=== PATIENT | female | born 1965 | race Caucasian/White ===

== ENCOUNTER 2019-11-29 13:31 | Observation (INO) | payer BC, SELFPAY ==
[2019-11-29] VITALS (32 sets, daily range): BP systolic 117–175; BP diastolic 60–96; PULSE 75–119; RESP 10–36; TEMP 36.1–36.8; O2SAT 93–100; BMI 27.8
--- NOTE | ~2019-11-29 | XR_ITS ---
EXAMINATION: XR chest 2V DATE: 11/29/2019 14:02 INDICATION: Chest pain. TECHNIQUE: Frontal and lateral views of the chest were obtained. COMPARISON: Chest single view 07/11/2012 FINDINGS: The chest demonstrates clear lungs without pneumonia, pleural effusion, or pneumothorax. Th e heart size is normal. There is mild anterior wedging 2 midthoracic vertebral bodies, likely chronic . IMPRESSION: 1. No acute cardiopulmonary disease. Reviewed, dictated and finalized at location E.
--- NOTE | ~2019-11-29 | CT_ITS ---
EXAMINATION: CTA chest PE protocol DATE: 11/29/2019 16:48 INDICATION: Chest pain and shortness of breath TECHNIQUE: Computed tomography angiography (CTA) of the chest was performed with 100 mL Omnipaque-350 intravenous contrast timed to evaluate the pulmonary arteries. Coronal maximum intensity projection 3D-reconstructions were created by the technologist. The dose-length product (DLP) was 321.42 mGy-cm. Automated exposure control and iterative reconstruction technique were employed. COMPARISON: 06/08/2006 FINDINGS: The pulmonary arteries are well-opacified. No pulmonary embolism is identified. The lungs a re free of acute opacities. There is no pleural effusion or pneumothorax. No pathologically enlarged thoracic lymph nodes are identified. The heart size is normal. There are surgical changes in the stom ach. The gallbladder is surgically absent. There is mild thoracic spondylosis. IMPRESSION: 1. No pulmonary embolism or acute cardiopulmonary abnormality. Reviewed, dictated and finalized at location A.
--- NOTE | 2019-11-29 13:33 | ECG_ITS ---
Measurements Intervals [place] Rate: 107 P: 78 [place]: 136 QRS: 69 QRSD: 93 T: 20 QT: 324 QTc: 434 Interpretive Statements SINUS TACHYCARDIA POSSIBLE LEFT ATRIAL ENLARGEMENT BORDERLINE ST ABNORMALITY- ANTEROLAT/INF LEADS BASELINE ARTIFACT- II, III, AVR, AVL, AVF, V2, V4 ABNORMAL ECG Electronically Signed On 11-29-2019 14:33:17 CDT by Young Ceja D.O.
--- NOTE | 2019-11-29 13:47 | ED.CHESTPAIN ---
HPI - Chest Pain General Chief Complaint: Chest Pain Stated Complaint: chest pain Time Seen by Provider: 11/29/19 13:43 Source: RN notes reviewed History of Present Illness HPI narrative: Patient presents emergency department from home for chest pain. Patient states that she has been having intermittent chest pain for the past 5 days. The pain is located over the left chest and is described as a pressure. Patient states the pain will last from 30 seconds to a minute at a time and initially occurred only several times during the day and is progressively worsened to occurring approximately every 15 to 20 minutes. Pain radiates into the left jaw and is associated with mild shortness of breath. Patient denies any previous cardiac history denies any fevers or chills abdominal pain nausea vomiting or any other symptoms at this time Related Data Home Medications Medication Instructions Recorded Confirmed bupropion HCl [Wellbutrin XL] 150 mg PO QAM 11/29/19 furosemide [Lasix] 20 mg PO DAILY 11/29/19 levothyroxine 13 mcg PO DAILY 11/29/19 Allergies Allergy/AdvReac Type Severity Reaction Status Date / Time prochlorperazine Allergy Unknown MAKES PT'S Verified 11/29/19 13:40 MUSCLES OMAR Review of Systems Review of Systems: Narrative: Gen.: Denies fevers or chills ENT: Denies congestion Respiratory: Reports shortness of breath CV: Reports chest pain GI: Denies abdominal pain nausea, emesis or diarrhea Musculoskeletal: Denies back pain or muscle pain Neuro: Denies numbness, tingling, weakness or focal weakness Skin: Denies rash Except as documented, all other systems reviewed and negative [facility] Past Medical History Medical History (Updated 11/29/19 @ 18:45 by Cj Worrell DO) Patient denies significant medical history Social History Social History (Updated 11/29/19 @ 13:48 by Cj Worrell DO) Smoking status: Never smoker Gender identity (if verbalized by the patient): Female Exam Narrative: Exam Narrative: APPEARANCE: No acute distress, nontoxic, resting in bed EYES: EOMI HEENT: Normocephalic, atraumatic, OMM RESPIRATORY: No respiratory distress Clear to auscultation bilaterally with no rhonchi wheezing or rales. CARDIOVASCULAR: Tachycardic and regular without murmurs rubs or gallops. ABDOMINAL: Soft, nontender, nondistended, no rebound or guarding MUSCULOSKELETAl: Moves all extremities. No clubbing, cyanosis or edema. NEURO: Awake and alert. Following commands, speech normal, no focal deficits SKIN:: Warm, dry. No rashes lesions or abrasions PSYCHIATRIC: Normal affect/mood, Course Course Emergency Course: Patient notes minimal change in pain with GI cocktail morphine given with improvement Following Zofran the patient had hives and redness noted to right wrist Solu-Medrol Benadryl was given the patient noted irritation of the right hand radial pulse was 2+ capillary refill is less than 3 seconds in all 5 digits the IV was removed and patient noted improvement in symptoms Discussed with Dr. mcgraw presentation work-up. Agrees with admission at this time Discussed with GRISELDA Middleton for Dr Bojorquez presentation work-up agrees with admission at this time Discussed with patient and family results of workup and diagnosis. Discussed need for admission. Patient and family understand and agree to current treatment plan Vital Signs Vital signs: Vital Signs Temperature 98.3 F 11/29/19 13:36 Pulse Rate 116 H 11/29/19 13:36 Respiratory Rate 16 11/29/19 13:36 Blood Pressure 175/96 H 11/29/19 13:36 Pulse Oximetry 99 11/29/19 13:36 Temperature 98.3 F 11/29/19 13:36 Pulse Rate 80 11/29/19 17:45 Respiratory Rate 10 L 11/29/19 17:45 Blood Pressure 145/81 H 11/29/19 16:51 Pulse Oximetry 100 11/29/19 17:45 MDM - Chest Pain Lab Data Result diagrams: 11/29/19 13:43 11/29/19 13:44 Labs: Lab Results 11/29/19 11/29/19 11/29/19 Range/Uni
[2019-11-29 13:55] LABS: Basophils Percent Auto 0.3 % (0.2-1.2); Eosinophils Absolute Auto 0.1 K/mm3 (0-0.3); Eosinophils Percent Auto 0.6 % (0-4.4); Hematocrit 42.7 % (37.0-47.0); Hemoglobin 13.7 g/dL (12.0-15.0); Immature Granulocyte Absolute 0.04 K/mm3 (0.00-0.031); Immature Granulocyte Percent A 0.4 % (0-0.5); Lymphocytes Absolute Auto 2.46 K/mm3 (0.9-3.2); Lymphocytes Percent Auto 26.1 % (18.3-44.2); Mean Corpuscular HGB Conc 32.1 g/dl (32-36); Mean Corpuscular Hemoglobin 28.8 pg (26-34); Mean Corpuscular Volume 89.7 fl (80-100); Mean Platelet Volume 10.9 fl (7.4-10.4); Monocytes Absolute Auto 0.6 K/mm3 (0.1-0.6); Monocytes Percent Auto 6.8 % (2.6-8.5); Neutrophils Absolute Auto 6.2 K/mm3 (1.3-6.7); Neutrophils Percent Auto 65.8 % (45.5-73.1); Platelet Count Result 327 k/mm3 (150-375); Red Blood Count 4.76 M/mm3 (4.2-5.4); White Blood Count 9.4 K/mm3 (4.5-10.0)
[2019-11-29 14:04] LABS: INR 0.9; Prothrombin Time 11.9 Seconds (11.1-14.7)
[2019-11-29 14:05] LABS: Partial Thromboplastin Time 22.9 SECONDS (22.3-36.8)
[2019-11-29 14:11] LABS: Blood Urea Nitrogen 20 mg/dL (7-17); Carbon Dioxide 27 mmol/L (22-30); Chloride 103 mmol/L (98-107); Estimated CRCL calculation 78 ml/min; Estimated Glomerular Filt Rate > 60; Glucose 81 mg/dL (65-105); Potassium 4.7 mmol/L (3.4-5.0); Sodium 139 mmol/L (137-145)
[2019-11-29] MEDS: ASPIRIN 81 MG CHEWABLE TABLET 324 MG PO (14:33)
--- NOTE | 2019-11-29 15:45 | ECG_ITS ---
Measurements Intervals [place] Rate: 89 P: 67 [place]: 150 QRS: 53 QRSD: 96 T: 60 QT: 373 QTc: 454 Interpretive Statements SINUS RHYTHM POSSIBLE LEFT ATRIAL ENLARGEMENT BORDERLINE ECG Electronically Signed On 11-30-2019 7:16:19 CDT by Young Ceja D.O.
[2019-11-29] MEDS: ONDANSETRON INJ 4 MG/2 ML VIAL IV PUSH (16:30)
--- NOTE | 2019-11-29 16:40 | PC.NURSE ---
Attempted to draw 3-hour troponin but patient in CT scan
[2019-11-29] MEDS: methylPREDNISolone SOD SUCC 125 MG VIAL IV PUSH (16:54)
[2019-11-29] MEDS: MORPHINE SULFATE 4 MG/ML INJ IV PUSH (16:54)
--- NOTE | 2019-11-29 17:09 | PC.NURSE ---
Attempted to obtain 3-hour troponin but was unsuccessful. Called phlebotomy at this time to draw.
[2019-11-29 17:59] LABS: Troponin I < 0.012 ng/mL (0.000-0.034)
[2019-11-29 20:09] LABS: Troponin I < 0.012 ng/mL (0.000-0.034)
--- NOTE | 2019-11-29 21:14 | ADMGEN ---
This patient, Emi Huang, was admitted to IMU Room 202-01 on 11/29/19 at 2053. Patient/family oriented to hospital policies and general routines including ID bracelet, bed and alarms, visiting hours, pain management, procedures, bathroom and other care routines, personal items, smoking policy, room service/diet, and visiting hours. Valuables list has been completed. VSS at time of admission. Will continue to monitor pt closely. Information on how to activate the Rapid Response Team has been discussed. Patient/Family are encouraged to report perceived risks to care and to ask questions if they do not understand what they are told or what they should do.
[2019-11-30] VITALS (8 sets, daily range): BP systolic 100–102; BP diastolic 53–62; PULSE 63–91; RESP 16–18; TEMP 36.1; O2SAT 98–100
--- NOTE | 2019-11-30 00:37 | PM.IMHP ---
H&P: HPI History of Present Illness Chief complaint: chest pain Narrative: This is a pleasant 54 year old female with known hypothyroidism, anxiety, and depression who presented to the hospital with a complaint of intermittent left sided chest pain for the past 5 days. She describes her chest pain as pressure like and radiating towards her left jaw. She describes having multiple episodes of chest pain each hour that lasts only a few moments each time. Associated symptoms include shortness of breath, diaphoresis and anxiety. She denies that her chest pain is pleuritic, positional or exertional in nature. She has no previous history of heart disease. She had a stress test many years ago and believes she once had a cardiac angiogram about 10 years ago. The patient's troponin has been negative. On my encounter with the patient brady she currently is asymptomatic other than feeling very anxious. 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 She denies any recent fevers, cough or other symptoms. Review of Systems Review of Systems: All systems reviewed & are unremarkable except as noted in HPI and below PMFSH Past Medical History Medical History (Updated 11/30/19 @ 22:27 by Eugenio Larsen MD) Anxiety Depression Hypothyroidism Patient denies significant medical history Family History Family History Mother Hypertension Pulmonary embolism Father Hypertension Grandparent Hypertension Acute myocardial infarction Chronic obstructive pulmonary disease Pulmonary embolism Sibling Rectal cancer Chronic obstructive pulmonary disease Congestive heart failure Sibling Breast cancer Social History Social History Smoking status: Never smoker Second hand tobacco smoke exposure: No Alcohol intake: never Substance use: never Substance use type: does not use Gender identity (if verbalized by the patient): Female Spiritual care concerns: No Meds Home Medications and Allergies Home Medications Medication Instructions Recorded Confirmed Type bupropion HCl [Wellbutrin XL] 300 mg PO QAM 11/29/19 11/29/19 History diphenhydramine-acetaminophen 2 tablet PO HS PRN 11/29/19 11/29/19 History [Tylenol PM Extra Strength] furosemide [Lasix] 20 mg PO DAILY 11/29/19 11/29/19 History levothyroxine 137 mcg PO DAILY 11/29/19 11/29/19 History lorazepam 0.5 mg PO BID PRN 11/29/19 11/29/19 History ondansetron 4 mg PO Q6H PRN 11/29/19 11/29/19 History Allergies Allergy/AdvReac Type Severity Reaction Status Date / Time prochlorperazine Allergy Unknown MAKES PT'S Verified 11/29/19 21:52 MUSCLES JERK Vital Signs Vital Signs - 24 hr 11/29/19 13:36 11/29/19 13:38 11/29/19 13:39 Temperature 36.8 C Pulse Rate 116 H 115 H 109 H Respiratory Rate 16 15 28 H Blood Pressure 175/96 H 175/96 H Pulse Oximetry 99 98 99 11/29/19 13:40 11/29/19 13:46 11/29/19 14:06 Temperature Pulse Rate 119 H 109 H 93 Respiratory Rate 26 H 21 H Blood Pressure Pulse Oximetry 100 100 11/29/19 14:15 11/29/19 14:41 11/29/19 14:45 Temperature Pulse Rate 90 82 82 Respiratory Rate 28 H 20 19 Blood Pressure Pulse Oximetry 100 100 100 11/29/19 15:00 11/29/19 15:18 11/29/19 15:30 Temperature Pulse Rate 87 76 80 Respiratory Rate 31 H 12 Blood Pressure Pulse Oximetry 100 93 96 11/29/19 15:47 11/29/19 16:06 11/29/19 16:15 Temperature Pulse Rate 93 88 84 Respiratory Rate 33 H 21 H 20 Blood Pressure Pulse Oximetry 94 99 98 11/29/19 16:30 11/29/19 16:50 11/29/19 16:51 Temperature Pulse Rate 80 98 97 Respiratory Rate 18 23 H 21 H Blood Pressure 145/81 H Pulse Oximetry 98 100 100 11/29/19 17:00 11/29/19 17:21 11/29/19 17:34 Temperature Pulse Rate 106 H 80 83 Respiratory Rate 36 H 28 H 17 Blood Pressure Pulse Oximetry
[2019-11-30] MEDS: ACETAMINOPHEN 500 MG TABLET 1000 MG PO (01:09)
[2019-11-30] MEDS: LORAZEPAM 0.5 MG TABLET PO (01:10)
--- NOTE | 2019-11-30 01:28 | ECG_ITS ---
Measurements Intervals [place] Rate: 79 P: 69 [place]: 158 QRS: 66 QRSD: 93 T: 63 QT: 391 QTc: 448 Interpretive Statements SINUS RHYTHM BASELINE ARTIFACT- AVF, V1, V4-V5 NORMAL ECG Electronically Signed On 11-30-2019 7:19:43 CDT by Young Ceja D.O.
[2019-11-30 04:38] LABS: Basophils Percent Auto 0.1 % (0.2-1.2); Hematocrit 37.9 % (37.0-47.0); Hemoglobin 12.1 g/dL (12.0-15.0); Immature Granulocyte Absolute 0.02 K/mm3 (0.00-0.031); Immature Granulocyte Percent A 0.2 % (0-0.5); Lymphocytes Absolute Auto 0.74 K/mm3 (0.9-3.2); Lymphocytes Percent Auto 8.6 % (18.3-44.2); Mean Corpuscular HGB Conc 31.9 g/dl (32-36); Mean Corpuscular Hemoglobin 28.6 pg (26-34); Mean Corpuscular Volume 89.6 fl (80-100); Mean Platelet Volume 10.5 fl (7.4-10.4); Monocytes Absolute Auto 0.2 K/mm3 (0.1-0.6); Monocytes Percent Auto 1.7 % (2.6-8.5); Neutrophils Absolute Auto 7.7 K/mm3 (1.3-6.7); Neutrophils Percent Auto 89.4 % (45.5-73.1); Platelet Count Result 277 k/mm3 (150-375); Red Blood Count 4.23 M/mm3 (4.2-5.4); Red Cell Distribution Width 12.6 % (11.5-14.5); White Blood Count 8.6 K/mm3 (4.5-10.0)
[2019-11-30 04:50] LABS: Cholesterol 141 mg/dL (0-200); HDL Direct 66 mg/dL; Triglycerides 52 mg/dL (<150)
[2019-11-30 04:54] LABS: Alanine Aminotransferase 11 U/L (4-35); Albumin Level 4.1 g/dL (3.5-5.1); Alkaline Phosphatase 85 U/L (38-126); Aspartate Amino Transferase 20 U/L (14-36); Bilirubin,Total 0.3 mg/dL (0.2-1.3); Blood Urea Nitrogen 22 mg/dL (7-17); Calcium 9.1 mg/dL (8.4-10.2); Carbon Dioxide 23 mmol/L (22-30); Chloride 107 mmol/L (98-107); Estimated CRCL calculation 88 ml/min; Estimated Glomerular Filt Rate > 60; Glucose 144 mg/dL (65-105); Potassium 4.2 mmol/L (3.4-5.0); Sodium 136 mmol/L (137-145)
[2019-11-30 05:00] LABS: LDL Cholesterol Direct 60 mg/dL
[2019-11-30] MEDS: LEVOTHYROXINE SODIUM 25 MCG TABLET PO (05:54)
[2019-11-30] MEDS: LEVOTHYROXINE SODIUM 112 MCG TABLET PO (05:54)
--- NOTE | 2019-11-30 09:11 | PM.CNCAR ---
Assessment and Plan Assessment and plan (1) Chest pain: Code(s): R07.9 - Chest pain, unspecified Status: Acute Assessment and Plan: This is probably more anxiety/stress related chest discomfort. Advise to decrease stress level, and may need anxiolytics adjusted. She is on Wellbutrin also. May d/c home from cardiology standpoint and f/u with me in next 1-2 weeks to order an outpatient stress test. We do not do them on weekends. (2) Anxiety: Code(s): F41.9 - Anxiety disorder, unspecified Status: Acute History of Present Illness History of Present Illness Consult date/time: 11/30/19 09:11 Reason for consult: Chest pain. This is a 54 year old woman with known hypothyroidism, anxiety, and depression who presented to the hospital with a complaint of intermittent left sided chest pain for the past 5 days. She describes her chest pain as pressure like and radiating towards her left jaw. She describes having multiple episodes of chest pain each hour that lasts only a few moments each time. Associated symptoms include shortness of breath, diaphoresis and anxiety. She denies that her chest pain is pleuritic, positional or exertional in nature. She has no previous history of heart disease. 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 She admits her anxiety does come on for which she takes Ativan BID. She is able to walk 1 mile without any problems. Her initial EKG shows Sinus rhythm with borderline ST abnormality, then it improved and finally resolved. Troponins x 3 sets are negative. She no longer have any more chest pains since 4 this morning. CTA of chest is without pulm embolism. Reason For Visit: chest pain Review of Systems Review of Systems: All systems reviewed & are unremarkable except as noted in HPI and below Constitutional: Constitutional: Reports as per HPI, Denies body ache(s) and Denies chills Cardiovascular: Cardiovascular: Reports as per HPI and Reports chest pain Respiratory: Respiratory: Reports as per HPI and Denies dyspnea on exertion Gastrointestinal: Gastrointestinal: Reports as per HPI and Denies abdominal pain Genitourinary: Genitourinary: Reports as per HPI and Denies nocturia Musculoskeletal: Musculoskeletal: Reports as per HPI Neurologic: Reports as per HPI and Denies Abnormal speech present [facility] Past Medical History Medical History Patient denies significant medical history Family History Family History Mother Hypertension Pulmonary embolism Father Hypertension Grandparent Hypertension Acute myocardial infarction Chronic obstructive pulmonary disease Pulmonary embolism Sibling Rectal cancer Chronic obstructive pulmonary disease Congestive heart failure Sibling Breast cancer Social History Social History Smoking status: Never smoker Second hand tobacco smoke exposure: No Alcohol intake: never Substance use: never Substance use type: does not use Gender identity (if verbalized by the patient): Female Spiritual care concerns: No Meds Home Medications and Allergies Home Medications Medication Instructions Recorded Confirmed Type bupropion HCl [Wellbutrin XL] 300 mg PO QAM 11/29/19 11/29/19 History diphenhydramine-acetaminophen 2 tablet PO HS PRN 11/29/19 11/29/19 History [Tylenol PM Extra Strength] furosemide [Lasix] 20 mg PO DAILY 11/29/19 11/29/19 History levothyroxine 137 mcg PO DAILY 11/29/19 11/29/19 History lorazepam 0.5 mg PO BID PRN 11/29/19 11/29/19 History ondansetron 4 mg PO Q6H PRN 11/29/19 11/29/19 History Allergies Allergy/AdvReac Type Severity Reaction Status Date / Time prochlorperazine Allergy Unknown MAKES PT'S Verified 11/29/19 21:52 MUSCLES JERK Vital Signs Vital Signs -
[2019-11-30] MEDS: FUROSEMIDE 20 MG TABLET PO (09:19)
[2019-11-30] MEDS: buPROPion HCL XL (24 HR) 150 MG TABCR 300 MG PO (09:19)
--- NOTE | 2019-11-30 11:07 | PM.DS ---
DS: Admitting Diagnosis Admitting Diagnosis Admitting Diagnosis: Chest pain, unspecified DS: Discharge Diagnosis Discharge Diagnosis (1) Anxiety: Code(s): F41.9 - Anxiety disorder, unspecified Status: Acute Assessment and Plan: History of anxiety -chest pain may be anxiety related. Pt to have outpatient stress test. (2) Chest pain: Code(s): R07.9 - Chest pain, unspecified Status: Acute Assessment and Plan: 54 year old female with known hypothyroidism, anxiety, and depression who presented to the hospital with a complaint of intermittent left sided chest pain for the past 5 days. EKG shows Sinus rhythm with borderline ST abnormality. Troponins x 3 sets are negative. CTA of chest is without pulmonary embolism. Pt can be discharged with a follow up with Dr Ceja. No mention of cough or SOB. Chest pain intermittent and left sided. DS: Summary Time Spent with Patient Time attestation: Total time spent providing and/or coordinating discharge services:40 minutes on day of discharge Exam Narrative: Exam Narrative: Vitals are stable DS: Data Data Completed and Pending Labs on day of discharge: Labs from last 24 hours 11/30/19 11/30/19 11/30/19 04:16 04:16 04:16 WBC 8.6 RBC 4.23 Hgb 12.1 Hct 37.9 MCV 89.6 MCH 28.6 MCHC 31.9 L RDW 12.6 Plt Count 277 MPV 10.5 H Immature Gran % (Auto) 0.2 Neut % (Auto) 89.4 H Lymph % (Auto) 8.6 L Blount % (Auto) 1.7 L Eos % (Auto) 0.0 Baso % (Auto) 0.1 L Lymph # (Auto) 0.74 L Blount # (Auto) 0.2 Eos # (Auto) 0.0 Baso # (Auto) 0.0 Abs Immat Gran (auto) 0.02 Absolute Neuts (auto) 7.7 H Absolute Nucleated RBC 0.0 Nucleated RBC % 0.0 PT INR APTT Sodium 136 L Potassium 4.2 Chloride 107 Carbon Dioxide 23 BUN 22 H Creatinine 0.70 Estim Creat Clear Calc 88 Estimated GFR > 60 Glucose 144 H Calcium 9.1 Total Bilirubin 0.3 AST 20 ALT 11 Alkaline Phosphatase 85 Troponin I Total Protein 7.0 Albumin 4.1 Triglycerides 52 Cholesterol 141 LDL Cholesterol Direct 60 HDL Direct 66 11/29/19 11/29/19 11/29/19 19:39 17:29 13:44 WBC RBC Hgb Hct MCV MCH MCHC RDW Plt Count MPV Immature Gran % (Auto) Neut % (Auto) Lymph % (Auto) Blount % (Auto) Eos % (Auto) Baso % (Auto) Lymph # (Auto) Blount # (Auto) Eos # (Auto) Baso # (Auto) Abs Immat Gran (auto) Absolute Neuts (auto) Absolute Nucleated RBC Nucleated RBC % PT INR APTT Sodium 139 Potassium 4.7 Chloride 103 Carbon Dioxide 27 BUN 20 H Creatinine 0.80 Estim Creat Clear Calc 78 Estimated GFR > 60 Glucose 81 Calcium 9.0 Total Bilirubin AST ALT Alkaline Phosphatase Troponin I < 0.012 < 0.012 D 0.020 Total Protein Albumin Triglycerides Cholesterol LDL Cholesterol Direct HDL Direct 11/29/19 11/29/19 13:43 13:43 WBC 9.4 RBC 4.76 Hgb 13.7 Hct 42.7 MCV 89.7 MCH 28.8 MCHC 32.1 RDW 13.0 Plt Count 327 MPV 10.9 H Immature Gran % (Auto) 0.4 Neut % (Auto) 65.8 Lymph % (Auto) 26.1 Blount % (Auto) 6.8 Eos % (Auto) 0.6 Baso % (Auto) 0.3 Lymph # (Auto) 2.46 Blount # (Auto) 0.6 Eos # (Auto) 0.1 Baso # (Auto) 0.0 Abs Immat Gran (auto) 0.04 H Absolute Neuts (auto) 6.2 Absolute Nucleated RBC 0.0 Nucleated RBC % 0.0 PT 11.9 INR 0.9 APTT 22.9 Sodium Potassium Chloride Carbon Dioxide BUN Creatinine Estim Creat Clear Calc Estimated GFR Glucose Calcium Total Bilirubin AST ALT Alkaline Phosphatase Troponin I Total Protein Albumin Triglycerides Cholesterol LDL Cholesterol Direct HDL Direct Discharge Plan Discharge Attending physician on discharge: Amalia Bojorquez
== END 2019-11-30 12:00 | disposition home or self-care (01) ==
LOC: ANHED 18:46 → ANHIMU 19:58
PROVIDERS: Family Medicine; Admitting Provider Family Medicine; Emergency Provider Emergency Medicine; PCP Emergency Medicine; Visit Provider Family Medicine
DX: R07.9 Chest pain, unspecified (principal); E03.9 Hypothyroidism, unspecified; F41.8 Other specified anxiety disorders
CPT/HCPCS: 36415; 71046; 71275; 80048; 80053; 80061; 84484; 85025; 85610; 85730; 93005; 96374; 96375; 99285; A9270; G0378; J1200; J2270; J2405; J2930; Q9967

== ENCOUNTER 2019-12-05 10:09 | Outpatient (CLI) | payer BC, SELFPAY ==
--- NOTE | ~2019-12-05 | MM_ITS ---
EXAMINATION: MM screening aleksandra BI w bhumika HISTORY: Screening mammogram, family history of breast cancer in her sister. History of reduction aleksandra moplasty TECHNIQUE: Craniocaudal and mediolateral oblique 3-D tomosynthesis images were obtained and synthetic 2-D images were generated. CAD analysis was submitted and interpreted. COMPARISON: 04/13/2017 BREAST PARENCHYMAL COMPOSITION: The breasts are almost entirely fatty. FINDINGS: Bilateral skin calcifications are noted. There is no evidence of suspicious mass, calcifica tion, or architectural distortion to suggest malignancy in either breast. There has been no suspiciou s interval change. IMPRESSION: 1. No mammographic evidence of malignancy. 2. Recommend routine screening mammography in one year. BI-RADS Category 1: Negative Reviewed, dictated and finalized at location A.
== END 2019-12-05 10:10 | disposition home or self-care (01) ==
LOC: ANHIMG 10:11
PROVIDERS: PCP Emergency Medicine; Visit Provider Emergency Medicine
DX: Z12.31 Encounter for screening mammogram for malignant neoplasm of breast (principal)
CPT/HCPCS: 77063; 77067

== ENCOUNTER 2020-11-02 17:09 | Outpatient (CLI) | payer BC, SELFPAY ==
--- NOTE | ~2020-11-02 | XR_ITS ---
EXAMINATION: XR abdomen obstructive series DATE: 11/02/2020 17:29 INDICATION: Mid abdominal/stomach pain. TECHNIQUE: Frontal supine and upright views of the abdomen were obtained. COMPARISON: None. FINDINGS: No dilated loops of gas-filled bowel to suggest obstruction. No free intraperitoneal gas. Cholecystec katiuska clips in the right abdomen. Suture line in the left upper quadrant located along the greater cur vature of the stomach on prior CT which could be related to prior sleeve gastrectomy. Visualized mid to lower lung zones are clear. Heart size is normal. Inferior tip of a right-sided central venous por t catheter is seen at the superior vena cava. Mild thoracic and lumbar spondylosis. IMPRESSION: 1. No free intraperitoneal gas or dilated gas-filled loops of bowel to suggest obstruction. Reviewed, dictated and finalized at location A.
== END 2020-11-02 17:10 | disposition home or self-care (01) ==
PROVIDERS: PCP Nurse Practitioner Adult Health; Visit Provider Nurse Practitioner Adult Health
DX: Z87.19 Personal history of other diseases of the digestive system (principal)
CPT/HCPCS: 74019

== ENCOUNTER → 2023-04-18 11:52 | Outpatient (CLI) | payer BC, SELFPAY ==
--- NOTE | ~2023-04-18 | XR_ITS ---
AP and oblique views of the right ribs Clinical History: Pain Findings: Right-sided Mediport in place. No rib fracture is seen. Osseous alignment is anatomic. Lung s are clear, without focal consolidation or pleural effusion. Cardiomediastinal contour is within nor mal limits. Soft tissues are unremarkable. Impression: No rib fracture is seen. Reviewed, dictated and finalized at location . Impression: No rib fracture is seen.
== END ==
PROVIDERS: PCP Family Medicine; Visit Provider Nurse Practitioner Family
DX: R07.81 Pleurodynia (principal)
CPT/HCPCS: 71100

== ENCOUNTER 2024-01-19 06:59 | Outpatient (CLI) | payer BC, SELFPAY ==
--- NOTE | ~2024-01-19 | XR_ITS ---
EXAMINATION: [id number] DATE: 01/19/2024 07:25 INDICATION: Left chest injury. TECHNIQUE: A frontal view of the chest and 2 views on 3 radiographs of the left ribs were obtained. COMPARISON: Chest 2 views 11/29/19 FINDINGS: There is no pneumonia, pleural effusion, or pneumothorax. The heart size is normal. There i s a right subclavian port with tip in superior vena cava. IMPRESSION: 1. No rib fracture. Reviewed, dictated and finalized at location E. IMPRESSION: 1. No rib fracture.
== END 2024-01-19 07:00 | disposition home or self-care (01) ==
PROVIDERS: PCP Family Medicine; Visit Provider Family Medicine
DX: R07.81 Pleurodynia (principal)
CPT/HCPCS: 71101

== ENCOUNTER 2024-04-24 09:10 | Outpatient (CLI) | payer BC, SELFPAY ==
--- NOTE | ~2024-04-24 | US_ITS ---
Right neck ULTRASOUND Ordering provider: Adriana Ventura NP History: . R22.1 - Localized swelling, mass and lump, neck . Comparison: None. FINDINGS/impression: Multiple subcutaneous and deep lymph nodes are noted. The largest measures 1.3 x 0.7 x 0.4 cm. Follow -up advised. Reviewed, dictated and finalized at location A.
== END 2024-04-24 09:11 | disposition home or self-care (01) ==
LOC: GOSHIMG 09:12
PROVIDERS: PCP Family Medicine; Visit Provider Nurse Practitioner Family
DX: R22.1 Localized swelling, mass and lump, neck (principal)
CPT/HCPCS: 76536

== ENCOUNTER 2024-07-05 13:48 | Outpatient (CLI) | payer BC, SELFPAY ==
--- NOTE | ~2024-07-05 | CT_ITS ---
EXAMINATION: CT soft tissue neck w con DATE: 07/05/2024 14:21 INDICATION: Localized enlarged lymph nodes. TECHNIQUE: Computed tomography (CT) of the neck was performed with 75 mL Omnipaque-350 intravenous co ntrast. Automated exposure control and iterative reconstruction technique were employed. The dose-brandin gth product was 374.17 mGy-cm. COMPARISON: None FINDINGS: There are no pathologically enlarged lymph nodes. There is plaque in the proximal internal carotid arteries is 0% stenosis relative to normal distal artery lumen diameters. There is moderate s pondylosis at C3-C4. IMPRESSION: 1. No lymphadenopathy. Reviewed, dictated and finalized at location [] [employer] SUPER[employer]OR IMPRESSION: 1. No lymphadenopathy.
[2024-07-05 14:08] LABS: Estimated Glomerular Filt Rate 57
== END 2024-07-05 13:49 | disposition home or self-care (01) ==
LOC: MICIMG 13:49
PROVIDERS: PCP Family Medicine; Visit Provider Otolaryngology
DX: R59.0 Localized enlarged lymph nodes (principal); D17.21 Benign lipomatous neoplasm of skin and subcutaneous tissue of right arm
CPT/HCPCS: 70491; Q9967